=== PATIENT | male | born 1985 | race Caucasian/White ===

== ENCOUNTER 2021-01-11 19:37 | Emergency (ER) | payer SELFPAY ==
[~2021-01-11] VITALS: Ht 190.5 cm; Wt 124.7 kg
[~2021-01-11 19:37] MED LIST: HYDR1TAB8 OP
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
--- NOTE | 2021-01-11 21:05 | Diagnostic Imaging Report ---
EXAM: Left ankle at 8:26 PM INDICATION: Injury, ankle pain. Three views were obtained. COMPARISON: There are no prior studies available for comparison. FINDINGS: There is no fracture, dislocation or acute bony abnormality involving the ankle joint. The ankle mortise is not widened and the talar dome is smooth. On the AP view, there is a small 4 mm calcific density in the soft tissues along the lateral aspect of the cuboid bone. This could represent a small avulsion fracture although the age of this injury is indeterminate. The lateral view also shows a small 4 mm calcific density along the anterior margin of the navicular bone. This too may represent an avulsion fracture although its age is indeterminate as well. The soft tissues are unremarkable. IMPRESSION: 1. There is no acute bony abnormality of the ankle joint. 2. The suspected avulsion fractures adjacent to the cuboid and navicular bones are of indeterminate age. Clinical follow-up is recommended. Dictated by: Dictated on workstation # [id number]
[2021-01-11 21:15] LABS: BUN/CREATININE RATIO 11; CALCIUM 8.9 MG/DL (8.5-10.1); CARBON DIOXIDE 23 MMOL/L (21-32); CHLORIDE 105 MMOL/L (98-107); CREATININE SERUM 0.84 MG/DL (0.60-1.30); GFR ESTIMATED > 60; GLUCOSE 86 MG/DL (70-105); POTASSIUM 3.4 MMOL/L (3.6-5.0); SODIUM 138 MMOL/L (135-145)
[2021-01-11] MEDS ORDERED: AMLO10TA4 PO (21:41)
[2021-01-11] MEDS ORDERED: amLODIPine 10 MG (NORVASC) TAB PO ONE (21:45)
[2021-01-11] MEDS ORDERED: IBUPROFEN 800 MG (MOTRIN) TAB PO ONE (22:00)
[2021-01-11 22:05] VITALS: BP 193/129
== END 2021-01-11 22:05 | disposition home or self-care (01) ==
LOC: EDUNIT# 19:37 → ER 19:43
DX: S93.402A Sprain of unspecified ligament of left ankle, initial encounter (principal); R03.0 Elevated blood-pressure reading, without diagnosis of hypertension; Y04.0XXA Assault by unarmed brawl or fight, initial encounter; W18.39XA Other fall on same level, initial encounter
CPT/HCPCS: 36415; 73610; 80048

== ENCOUNTER 2022-05-11 18:42 | Inpatient (IN) | payer SELFPAY ==
[~2022-05-11] VITALS: Ht 190.5 cm; Wt 120.3 kg
[~2022-05-11 18:42] MED LIST changes: +AMLO10TA4 PO
[2022-05-11] MEDS ORDERED: ASPIRIN 81 MG CHEW (CHILDREN'S ASA) PO ONE (19:15)
--- NOTE | 2022-05-11 19:15 | Diagnostic Imaging Report ---
Indication: Chest pain Frontal chest obtained at 7:15 p.m. Heart and mediastinal silhouette are unremarkable for a portable view. Lungs are clear. There is no pneumothorax or pleural fluid. Impression: Negative chest. Dictated by: Dictated on workstation # [id number]
[2022-05-11 19:16] LABS: ALBUMIN 4.6 GM/DL (3.2-4.5)
[2022-05-11 19:17] LABS: CHLORIDE 104 MMOL/L (98-107); POTASSIUM 3.5 MMOL/L (3.6-5.0); SODIUM 144 MMOL/L (135-145)
[2022-05-11 19:18] LABS: BASOPHILS # (AUTO) 0.1 10^3/uL (0.0-0.1); BASOPHILS % (AUTO) 1 % (0-10); CALCIUM 9.2 MG/DL (8.5-10.1); EOSINOPHILS # (AUTO) 0.2 10^3/uL (0.0-0.3); EOSINOPHILS % (AUTO) 2 % (0-10); HEMATOCRIT 45 % (40-54); HEMOGLOBIN 15.2 g/dL (13.3-17.7); LYMPHOCYTES # (AUTO) 3.7 10^3/uL (1.0-4.0); LYMPHOCYTES % (AUTO) 33 % (12-44); MEAN CORPUSCULAR HEMOGLOBIN 29 pg (25-34); MEAN CORPUSCULAR HGB CONC 34 g/dL (32-36); MEAN CORPUSCULAR VOLUME 85 fL (80-99); MEAN PLATELET VOLUME 10.3 fL (9.0-12.2); MONOCYTES # (AUTO) 0.7 10^3/uL (0.0-1.0); MONOCYTES % (AUTO) 7 % (0-12); NEUTROPHILS # (AUTO) 6.4 10^3/uL (1.8-7.8); NEUTROPHILS % (AUTO) 58 % (42-75); PLATELET COUNT 353 10^3/uL (130-400); WHITE BLOOD COUNT 11.1 10^3/uL (4.3-11.0)
[2022-05-11 19:19] LABS: GLUCOSE 112 MG/DL (70-105); TOTAL PROTEIN 7.7 GM/DL (6.4-8.2)
[2022-05-11] MEDS: NITROGLYCERIN 0.4 MG SL TABS BTL 25'S SL PRN ×3 (19:19→19:50)
[2022-05-11 19:20] LABS: CARBON DIOXIDE 24 MMOL/L (21-32)
[2022-05-11 19:21] LABS: BILIRUBIN,TOTAL 0.4 MG/DL (0.1-1.0)
[2022-05-11 19:22] LABS: ALKALINE PHOSPHATASE 80 U/L (40-136)
[2022-05-11 19:23] LABS: CREATININE SERUM 0.91 MG/DL (0.60-1.30); GFR ESTIMATED 113
--- NOTE | 2022-05-11 19:23 | ED Chest Pain ---
General Chief Complaint: Cardiac/General Problems Stated Complaint: ABNORMAL EKG, HTN Nursing Triage Note: PT AMB TO RM 5 WITH MOTHER WITH C/O SOB STARTING SUNDAY AND HTN. PT SEEN AT [facility] BEFORE ARRIVAL AND WAS GIVEN 324 ASA AT CLINIC Source: patient, old records Exam Limitations: no limitations History of Present Illness Date Seen by Provider: May 11, 2022 Time Seen by Provider: 18:53 Initial Comments This 36-year-old gentleman with known history of uncontrolled and untreated hypertension presents to the emergency room with 4 days of shortness of breath and "left rib pain" presents to the ER as directed by the [facility] walk-in clinic. He went to the clinic for the above-mentioned symptoms. EKG noted some nonspecific ST changes and severe hypertension with systolic blood pressure greater than 200. He was referred to the emergency room. Initial blood pressure here is 247/146. He was noted to have significant hypertension when seen here last year for an ankle fracture. He was prescribed Norvasc. He reports blood pressure did improve while on Norvasc with systolics in the 160s. He did not follow-up promptly with her primary care provider and did not continue on blood pressure medications. He reports a typical blood pressure at home recently has been 180s over 130s. He denies any use of stimulants other than drinking Mountain Dew. He denies any illicit drug use or alcohol use. He is awaiting an appointment to establish care in June. He has a smoker and has a chronic unchanged cough. He denies fever. He has had no unusual swelling recently. Allergies and Home Medications Allergies Coded Allergies: No Known Drug Allergies (Unverified , 06/19/10) Patient Home Medication List Home Medication List Reviewed: Yes Amlodipine Besylate (Norvasc) 10 Mg Tablet, 10 MG PO DAILY Prescribed by: UCHE BOOKER on 01/11/212140 Hydrocodone Bit/Ibuprofen (Vicoprofen 200-7.5 Mg Tab) 1 Each Tablet, 1-2 EACH OP Q 4 - 6 HRS PRN Prescribed by: ASHA STORY on 06/19/10 2173 Review of Systems Review of Systems Constitutional: no symptoms reported EENTM: No Symptoms Reported Respiratory: See HPI Cardiovascular: See HPI Gastrointestinal: No Symptoms Reported Genitourinary: No Symptoms Reported Musculoskeletal: no symptoms reported Skin: no symptoms reported Psychiatric/Neurological: No Symptoms Reported Endocrine: No Symptoms Reported Hematologic/Lymphatic: No Symptoms Reported Past Ihrpfwt-Zlstdd-Yykjex Hx Patient Social History Tobacco Use?: Yes Tobacco type used: Cigarettes Smoking Status: Current Everyday Smoker Substance use?: No Alcohol Use?: No Pt feels they are or have been: No Immunizations Up To Date Influenza Vaccine Up-to-Date: No; Not Current Seasonal Allergies Seasonal Allergies: Yes Past Medical History Surgery/Hospitalization HX: HTN, ANXIETY, BIPOLAR Surgeries: Yes Adenoidectomy, Tonsillectomy Respiratory: No Cardiac: Yes Hypertension Neurological: No Genitourinary: No Gastrointestinal: No Musculoskeletal: No Endocrine: No HEENT: No Hearing Impairment: Denies Cancer: No Psychosocial: No Integumentary: No Blood Disorders: No Adverse Reaction/Blood Tranf: No Physical Exam Vital Signs Vital Signs - First Documented 05/11/22 18:53 Temp 37.0 Pulse 95 Resp 20 B/P (MAP) 247/146 (179) Capillary Refill : Height, Weight, BMI Height: '" Weight: lbs. oz. kg; 34.00 BMI Method: General Appearance: No Apparent Distress, WD/WN, Obese HEENT: PERRL/EOMI, Normal ENT Inspection Neck: Normal Inspection; No JVD Respiratory: Chest Non Tender, Lungs Clear, Normal Breath Sounds, No Accessory Muscle Use, No Respiratory Distress Cardiovascular: Regular Rate, Rhythm, No Edema, No Murmur Gastrointestinal: Normal Bowel Sounds, Non Tender, Soft; No Distended Extremity: Normal Inspection, Non Tender, No Calf Tenderness, No Pedal Edema Neurologic/Psychiatric: Alert, Oriented x3, No Motor/Sensory Deficits, Normal Mood/Affect Skin: Normal Color, Warm/Dry Progress/Results/Core Measures Results/Orders Lab Results Laboratory Tests Test 05/11/22 18:56 Range/Units White Blood Count 11.1 H 4.3-11.0 10^3/uL Red Blood Count 5.29 4.30-5.52 10^6/uL Hemoglobin 15.2 13.3-17.7 g/dL Hematocrit 45 40-54 % Mean Corpuscular Volume 85 80-99 fL Mean Corpuscular Hemoglobin 29 25-34 pg Mean Corpuscular Hemoglobin Concent 34 32-36 g/dL Red Cell Distribution Width 14.0 10.0-14.5 % Platelet Count 353 130-400 10^3/uL Mean Platelet Volume 10.3 9.0-12.2 fL Immature Granulocyte % (Auto) 0 % Neutrophils (%) (Auto) 58 42-75 % Lymphocytes (%) (Auto) 33 12-44 % Monocytes (%) (Auto) 7 0-12 % Eosinophils (%) (Auto) 2 0-10 % Basophils (%) (Auto) 1 0-10 % Neutrophils # (Auto) 6.4 1.8-7.8 10^3/uL Lymphocytes # (Auto) 3.7 1.0-4.0 10^3/uL Monocytes # (Auto) 0.7 0.0-1.0 10^3/uL Eosinophils # (Auto) 0.2 0.0-0.3 10^3/uL Basophils # (Auto) 0.1 0.0-0.1 10^3/uL Immature Granulocyte # (Auto) 0.0 0.0-0.1 10^3/uL Prothrombin Time 11.9 L 12.2-14.7 SEC INR Comment 0.8 0.8-1.4 Activated Partial Thromboplast Time 30 24-35 SEC Sodium Level 144 135-145 MMOL/L Potassium Level 3.5 L 3.6-5.0 MMOL/L Chloride Level 104 98-107 MMOL/L Carbon Dioxide Level 24 21-32 MMOL/L Anion Gap 16 H 5-14 MMOL/L Blood Urea Nitrogen 12 7-18 MG/DL Creatinine 0.91 0.60-1.30 MG/DL Estimat Glomerular Filtration Rate 113 BUN/Creatinine Ratio 13 Glucose Level 112 H 70-105 MG/DL Calcium Level 9.2 8.5-10.1 MG/DL Corrected Calcium 8.5-10.1 MG/DL Magnesium Level 2.1 1.6-2.4 MG/DL Total Bilirubin 0.4 0.1-1.0 MG/DL Aspartate Amino Transf (AST/SGOT) 27 5-34 U/L Alanine Aminotransferase (ALT/SGPT) 45 0-55 U/L Alkaline Phosphatase 80 40-136 U/L Myoglobin 77.9 10.0-92.0 NG/ML Troponin I < 0.028 <0.028 NG/ML B-Type Natriuretic Peptide 37.6 <100.0 PG/ML Total Protein 7.7 6.4-8.2 GM/DL Albumin 4.6 H 3.2-4.5 GM/DL TSH [place] Testing 1.99 0.35-4.94 UIU/ML My Orders Orders - BETHANIE CARVALHO MD Cbc With Automated Diff (05/11/22 18:53) Magnesium (05/11/22 18:53) Chest 1 View, Ap/Pa Only (05/11/22 18:53) Ekg Tracing (05/11/22 18:53) Comprehensive Metabolic Panel (05/11/22 18:53) Myoglobin Serum (05/11/22 18:53) Protime With Inr (05/11/22 18:53) Partial Thromboplastin Time (05/11/22 18:53) O2 (05/11/22 18:53) Monitor-Rhythm Ecg Trace Only (05/11/22 18:53) Lipid Panel (05/12/22 06:00) Ed Iv/Invasive Line Start (05/11/22 18:53) Troponin I Chanel (05/11/22 18:53) Ekg Tracing (05/11/22 18:53) Nitroglycerin 0.4 Mg Btl 25's (Nitrostat (05/11/22 19:15) Thyroid Analyzer (05/11/22 19:10) Bnp Chanel (05/11/22 19:10) Ns (Ivpb) (Sodium C... W/Nicardipine Iv (05/11/22 21:00) Metoprolol Succinate (Xl) Tab (Toprol Xl (05/11/22 20:52) Ed Admission (Communication) (05/11/22 20:52) Medications Given in ED Current Medications Medications Dose Ordered Sig/Dunia Route Start Time Stop Time Status Last Admin Dose Admin Nitroglycerin 0.4 mg UD PRN SL 05/11/22 19:15 05/11/22 19:50 DC 05/11/22 19:50 0.4 MG Vital Signs/I&O 05/11/22 18:53 Temp 37.0 Pulse 95 Resp 20 B/P (MAP) 247/146 (179) Blood Pressure Mean: 179 Progress Progress Note #1: Time: 20:44 Progress Note Aspirin was given in the clinic. Patient's chest pain has resolved after nitroglycerin x3. It took 3 nitroglycerin to alleviate his pain. Blood pressure did improve some to systolic in the 190s. It is now rebounding back up with his last blood pressure at 205/125. Progress Note #2: Time: 21:02 Progress Note Case was reviewed with Dr. Anand and Dr. Angulo. They are agreeable to a Cardene drip which is being started now. Dr. Angulo also requested a dose of Toprol-XL 200 mg now and daily. Report was given to eICU. Dr. Anand is placing admission orders. Patient is agreeable to admission and requests full CODE STATUS. Initial ECG Impression Date: May 11, 2022 Initial ECG Impression Time: 19:00 Initial ECG Rate: 87 Initial ECG Rhythm: Normal Sinus Initial ECG Intervals: Normal Comment Normal sinus rhythm with nondiagnostic ST changes. No abnormal intervals. LVH noted. Diagnostic Imaging Diagonstic Imaging: Xray Plain Films/CT/US/NM/MRI: chest Comments NAME: MARIYA BELTRAN [facility] REC#: [id number] PT STATUS: REG ER : 1985 PHYSICIAN: BETHANIE CARVALHO MD ADMIT DATE: 05/11/22/ER Draft Date of Exam:05/11/22 CHEST 1 VIEW, AP/PA ONLY Indication: Chest pain Frontal chest obtained at 7:15 p.m. Heart and mediastinal silhouette are unremarkable for a portable view. Lungs are clear. There is no pneumothorax or pleural fluid. Impression: Negative chest. Dictated on workstation # [id number] Dict: 05/11/221912 Trans: 05/11/221914 [facility] [id number] Interpreted by: STEPHAN WYMAN MD Departure Communication (Admissions) Time/Spoke to Admitting Phy: 20:50 Dr. Anand Time/Spoke to Consulting Phy: 20:55 Dr. Angulo Impression Primary Impression: Malignant hypertension Additional Impression: Chest pain Qualified Codes: R07.9 - Chest pain, unspecified Disposition: ADMITTED INPATIENT Condition: Stable Admissions Decision to Admit Reason: Admit from ER (General) Decision to Admit/Date: May 11, 2022 Time/Decision to Admit Time: 20:50 Departure-Patient Inst. Referrals: [facility] (PCP/Family) Primary Care Physician BETHANIE CARVALHO MD May 11, 2022 19:23
[2022-05-11 19:24] LABS: BUN/CREATININE RATIO 13
[2022-05-11 19:25] LABS: ALANINE AMINOTRANSFERASE 45 U/L (0-55); MAGNESIUM 2.1 MG/DL (1.6-2.4)
[2022-05-11] MEDS ORDERED: meTOprolol SUCCINATE 100 MG (TOPROL XL) TAB PO STA (20:52)
[2022-05-11 20:56] LABS: INR 0.8 (0.8-1.4); PROTHROMBIN TIME PATIENT 11.9 SEC (12.2-14.7)
[2022-05-11] MEDS: niCARdipine IV (Pyxis drip kit 50 MG in NS (IVPB) 230 ML IV SCH ×3 (21:16→22:51)
[2022-05-11] MEDS ORDERED: NS IV 1000 ML 1,000 ML ONE (22:11)
[2022-05-11 22:15] VITALS: BP_SYST 164; BP_SYST 193; BP_DIAS 106; BP_DIAS 115
[2022-05-11] MEDS ORDERED: ANTACID SUSP 30 ML UDC (MYLANTA) PO PRN (22:15)
[2022-05-11] MEDS ORDERED: NS IV 1000 ML 1,000 ML IV SCH (22:15)
[2022-05-11] MEDS ORDERED: ACETAMINOPHEN 325 MG TABLET PO PRN (22:15)
[2022-05-11] MEDS ORDERED: polyethylene glycoL POWDER 17 GM (MIRALAX) PACK PO PRN (22:15)
[2022-05-11] MEDS ORDERED: ONDANSETRON 4 MG/2 ML (SDV) Z0FRAN IV PRN (22:15)
[2022-05-11] MEDS ORDERED: NS IV 500 ML 500 ML IV PRN (22:15)
[2022-05-11] MEDS ORDERED: morphine IMMEDIATE RELEASE 15 MG TABLET PO PRN (22:15)
[2022-05-11] MEDS ORDERED: diphenhydrAMINE 50 MG/ML INJ (BENADRYL) IVP PRN (22:15)
[2022-05-11] MEDS ORDERED: CALCIUM CARBONATE 500 MG (TUMS) TAB.CHEW PO PRN (22:15)
[2022-05-11] MEDS ORDERED: ONDANSETRON 4 MG (ZOFRAN) ORAL DISSOLVE TAB PO PRN (22:15)
[2022-05-11] MEDS ORDERED: LACTULOSE SYRUP 10GM/15ML (ENULOSE) 30ML UDC PO PRN (22:15)
[2022-05-11] MEDS ORDERED: diphenhydrAMINE 25 MG TAB (BENADRYL) PO PRN (22:15)
[2022-05-11] MEDS ORDERED: BISACODYL 10 MG SUPP (DULCOLAX) PR PRN (22:15)
[2022-05-11] MEDS ORDERED: MELATONIN 3 MG TABLET PO PRN (22:15)
[2022-05-11] MEDS ORDERED: morphine INJ 4 MG/ML 1 ML (VIAL/SYRINGE) IV PRN (22:15)
[2022-05-11] MEDS ORDERED: MILK OF MAGNESIA 400 MG/5 ML 30 ML UDC PO PRN (22:15)
[2022-05-11] MEDS ORDERED: LORazepam 0.5 MG (ATIVAN) TABLET PO PRN (22:15)
[2022-05-11] MEDS ORDERED: RT-ALBUTEROL/IPRATROPIUM 3 ML (DUONEB) VIAL INH PRN (22:30)
[2022-05-11] MEDS: ENOXAPARIN 40 MG/0.4 ML (LOVENOX) SYR SC SCH (23:14)
[2022-05-12 05:06] LABS: BASOPHILS # (AUTO) 0.1 10^3/uL (0.0-0.1); BASOPHILS % (AUTO) 1 % (0-10); EOSINOPHILS # (AUTO) 0.2 10^3/uL (0.0-0.3); EOSINOPHILS % (AUTO) 2 % (0-10); HEMATOCRIT 46 % (40-54); HEMOGLOBIN 15.5 g/dL (13.3-17.7); LYMPHOCYTES # (AUTO) 3.5 10^3/uL (1.0-4.0); LYMPHOCYTES % (AUTO) 29 % (12-44); MEAN CORPUSCULAR HEMOGLOBIN 29 pg (25-34); MEAN CORPUSCULAR HGB CONC 34 g/dL (32-36); MEAN CORPUSCULAR VOLUME 85 fL (80-99); MEAN PLATELET VOLUME 10.2 fL (9.0-12.2); MONOCYTES # (AUTO) 0.9 10^3/uL (0.0-1.0); MONOCYTES % (AUTO) 8 % (0-12); NEUTROPHILS # (AUTO) 7.1 10^3/uL (1.8-7.8); NEUTROPHILS % (AUTO) 60 % (42-75); PLATELET COUNT 318 10^3/uL (130-400); WHITE BLOOD COUNT 11.9 10^3/uL (4.3-11.0)
[2022-05-12 05:40] LABS: ALBUMIN 4.4 GM/DL (3.2-4.5); BILIRUBIN,TOTAL 0.5 MG/DL (0.1-1.0); CALCIUM 9.2 MG/DL (8.5-10.1); CREATININE SERUM 0.79 MG/DL (0.60-1.30); MAGNESIUM 2.2 MG/DL (1.6-2.4); PHOSPHORUS 3.4 MG/DL (2.3-4.7); POTASSIUM 3.6 MMOL/L (3.6-5.0); TOTAL PROTEIN 7.6 GM/DL (6.4-8.2)
[2022-05-12 05:41] LABS: CHOLESTEROL 206 MG/DL (< 200); HDL CHOLESTEROL 42 MG/DL (40-60); TRIGLYCERIDES 92 MG/DL (<150); VLDL CHOLESTEROL 18 MG/DL (5-40)
[2022-05-12] MEDS: MAGNESIUM 1 GM/100 ML IVPB 100 ML IV SCH (06:08)
[2022-05-12] MEDS: POTASSIUM CL 10MEQ/50ML IVPB 50 ML IV SCH (06:09)
[2022-05-12] MEDS ORDERED: KCL 20 MEQ TAB (K-DUR) PO ONE (06:15)
[2022-05-12] MEDS: KCL 20 MEQ TAB (K-DUR) PO SCH (06:18)
--- NOTE | 2022-05-12 08:25 | Consultation-Cardiology ---
HPI-Cardiology Cardiology Consultation: Date of Consultation 05/12/22 Time Seen by a Provider: 09:30 Date of Admission 05-11-22 Attending Physician [place] Admitting Physician Admitting Physician: Louise Anand DO Attending Physician: Louise Anand DO Consulting Physician Orlando Angulo MD HPI: Chief Complaint: Uncontrolled HTN Mr. Cerrato is a 36 yr old male who came in to the ED yesterday after being seen at [facility]. He was noted to be hypertensive at that time. He has been admitted to ICU 10. He was started on a Cardene gtt. BP had improved to the point that the gtt was turned off. However, one he woke up this morning his BP went up again. He states he has had high blood pressure for over a year, but he does not like to take medications, so he stopped it. He reports he had occ "pinching' left lateral wall pains. The discomfort only last seconds. No assoc symptoms. No radiation. Discomfort is not r/t activity or emotional stress. No c/o n/v/d. No c/o fever or chills. Review of Systems-Cardiology Review of Systems Constitutional: No chills, No fever, No lightheadedness, No malaise Eyes: No vision change Ears/Nose/Throat: No epistaxis, No recent hearing loss Respiratory: As described under HPI Cardiovascular: As described under HPI Gastrointestinal: As described under HPI Genitourinary: No dysuria, No hematuria Musculoskeletal: no symptoms reported Skin: No rash on exposed areas, No ulcerations on exposed areas Psychiatric/Neurological: anxiety, depression; No focal weakness Hematologic: No bleeding abnormalities GHL-Zjqhtd-Easwhm Hx Patient Social History Smoking Status: Current Everyday Smoker 2nd Hand Smoke Exposure: No Have you traveled recently?: No Alcohol Use?: No Pt feels they are or have been: No Tobacco type used: Cigarettes Past Medical History PMH As described under Assessment. Family Medical History Family Medical History: He reports his mother had HTN and a heart arrhythmia. He reports he has a sister with a "heart valve" problem. Allergies and Home Medications Allergies Coded Allergies: No Known Drug Allergies (Unverified , 06/19/10) Patient Home Medication List Calcium Carbonate (Tums) 300 Mg Calcium (750 Mg) Tab.chew, 300-600 MG PO Q6H PRN for INDIGESTION, (Reported) Entered as Reported by: BAILEE DOHERTY on 05/12/22 1100 Last Action: Reviewed Ibuprofen (Ibuprofen) 200 Mg Tablet, 800 MG PO Q8H PRN for PAIN-MILD (1-4), (Reported) Entered as Reported by: BAILEE DOHERTY on 05/12/22 1100 Last Action: Reviewed Discontinued Medications Amlodipine Besylate (Norvasc) 10 Mg Tablet, 10 MG PO DAILY Discontinued Reason: No Longer Taking Prescribed by: UCHE BOOKER on 01/11/212140 Last Action: Discontinued Hydrocodone Bit/Ibuprofen (Vicoprofen 200-7.5 Mg Tab) 1 Each Tablet, 1-2 EACH OP Q 4 - 6 HRS PRN Discontinued Reason: No Longer Taking Prescribed by: ASHA STORY on 06/19/10 5428 Last Action: Discontinued Physical Exam-Cardiology Physical Exam Vital Signs/I&O 05/12/22 05/12/22 05/12/22 05/12/22 03:00 04:00 04:00 05:00 Pulse 62 67 71 Resp 15 20 17 B/P (MAP) 146/90 (108) 128/75 (92) 142/85 (104) Pulse Ox 92 93 96 94 O2 Delivery Room Air Room Air Room Air Room Air 05/12/22 05/12/22 05/12/22 05/12/22 06:00 07:00 07:00 08:00 Pulse 57 61 62 Resp 13 13 B/P (MAP) 140/85 (103) 140/82 (101) Pulse Ox 95 95 96 O2 Delivery Room Air Room Air Room Air 05/12/22 05/12/22 05/12/22 05/12/22 08:00 09:00 10:00 11:00 Pulse 82 67 70 65 Resp 22 10 20 20 B/P (MAP) 166/119 (135) 152/96 (114) 170/112 (131) 171/110 (130) Pulse Ox 97 97 96 96 O2 Delivery Room Air Room Air Room Air Room Air 05/12/22 05/12/22 05/12/22 05/12/22 12:00 13:00 13:00 13:47 Pulse 70 74 69 Resp 23 19 B/P (MAP) 149/88 (108) 173/103 (126) Pulse Ox 92 96 92 O2 Delivery Room Air Room Air Room Air 05/12/22 14:00 Pulse 65 Resp 10 B/P (MAP) 156/97 (116) Pulse Ox 96 O2 Delivery Room Air 05/12/22 00:00 Intake Total 0 ml Output Total 0 ml Balance 0 ml Capillary Refill : Constitutional: AAO x 3, well-developed, well-nourished HEENT: PERRL, hearing is well preserved, oral hygience is good Neck: No carotid bruit; carotid pulses are 2 + bilaterally Respiratory: No accessory muscle use, No respiratory distress; chest expansion is symmetric, chest is bilaterally symmetric, lungs clear to auscultation Cardiovascular: regular rate-rhythm; No JVD; S1 and S2 Gastrointestinal: No tender; soft, round, audible bowel sounds Extremities: no lower extremity edema bilateral Neurologic/Psychiatric: grossly intact (moves all extremities) Skin: No rash on exposed areas, No ulcerations on exposed areas Data Review Labs Laboratory Tests 05/11/22 18:56: White Blood Count 11.1H, Red Blood Count 5.29, Hemoglobin 15.2, Hematocrit 45, Mean Corpuscular Volume 85, Mean Corpuscular Hemoglobin 29, Mean Corpuscular Hemoglobin Concent 34, Red Cell Distribution Width 14.0, Platelet Count 353, Mean Platelet Volume 10.3, Immature Granulocyte % (Auto) 0, Neutrophils (%) (Auto) 58, Lymphocytes (%) (Auto) 33, Monocytes (%) (Auto) 7, Eosinophils (%) (Auto) 2, Basophils (%) (Auto) 1, Neutrophils # (Auto) 6.4, Lymphocytes # (Auto) 3.7, Monocytes # (Auto) 0.7, Eosinophils # (Auto) 0.2, Basophils # (Auto) 0.1, Immature Granulocyte # (Auto) 0.0, Prothrombin Time 11.9L, INR Comment 0.8, Activated Partial Thromboplast Time 30, Sodium Level 144, Potassium Level 3.5L, Chloride Level 104, Carbon Dioxide Level 24, Anion Gap 16H, Blood Urea Nitrogen 12, Creatinine 0.91, Estimat Glomerular Filtration Rate 113, BUN/Creatinine Ratio 13, Glucose Level 112H, Calcium Level 9.2, Corrected Calcium , Magnesium Level 2.1, Total Bilirubin 0.4, Aspartate Amino Transf (AST/SGOT) 27, Alanine Aminotransferase (ALT/SGPT) 45, Alkaline Phosphatase 80, Myoglobin 77.9, Troponin I < 0.028, B-Type Natriuretic Peptide 37.6, Total Protein 7.7, Albumin 4.6H, TSH [place] Testing 1.99 05/12/22 04:56: White Blood Count 11.9H, Red Blood Count 5.39, Hemoglobin 15.5, Hematocrit 46, Mean Corpuscular Volume 85, Mean Corpuscular Hemoglobin 29, Mean Corpuscular Hemoglobin Concent 34, Red Cell Distribution Width 13.9, Platelet Count 318, Mean Platelet Volume 10.2, Immature Granulocyte % (Auto) 0, Neutrophils (%) (Auto) 60, Lymphocytes (%) (Auto) 29, Monocytes (%) (Auto) 8, Eosinophils (%) (Auto) 2, Basophils (%) (Auto) 1, Neutrophils # (Auto) 7.1, Lymphocytes # (Auto) 3.5, Monocytes # (Auto) 0.9, Eosinophils # (Auto) 0.2, Basophils # (Auto) 0.1, Immature Granulocyte # (Auto) 0.0, Sodium Level 142, Potassium Level 3.6, Chloride Level 107, Carbon Dioxide Level 23, Anion Gap 12, Blood Urea Nitrogen 9, Creatinine 0.79, Estimat Glomerular Filtration Rate 119, BUN/Creatinine Ratio 11, Glucose Level 87, Calcium Level 9.2, Corrected Calcium 8.9, Magnesium Level 2.2, Total Bilirubin 0.5, Aspartate Amino Transf (AST/SGOT) 28, Alanine Aminotransferase (ALT/SGPT) 49, Alkaline Phosphatase 72, Total Protein 7.6, Albumin 4.4, Phosphorus Level 3.4, Triglycerides Level 92, Cholesterol Level 206H, LDL Cholesterol Direct 162H, VLDL Cholesterol 18, HDL Cholesterol 42 Radiology NAME: MARIYA CERRATO [facility] REC#: [id number] PT STATUS: ADM IN : 1985 PHYSICIAN: BETHANIE CARVALHO MD ADMIT DATE: 05/11/22/ICU Signed Date of Exam:05/11/22 CHEST 1 VIEW, AP/PA ONLY Indication: Chest pain Frontal chest obtained at 7:15 p.m. Heart and mediastinal silhouette are unremarkable for a portable view. Lungs are clear. There is no pneumothorax or pleural fluid. Impression: Negative chest. Dictated by: Dictated on workstation # [id number] Dict: 05/11/221912 Trans: 05/11/222107 CVB [id number] Interpreted by: STEPHAN WYMAN MD Electronically signed by: STEPHAN WYMAN MD 05/11/222107 ECG Impression ECG Initial ECG Rhythm: Normal Sinus A/P-Cardiology Assessment/Admission Diagnosis Uncontrolled HTN ADHD Bi-polar Non-compliance with medications Discussion and Recomendations Uncontrolled HTN - start BB - adjust antihypertensive regimen as indicated Echocardiogram today Monitor lab closely - replace electrolytes as indicated Further recs will be based on his hospital course We would like to thank medical services for this consult Clinical Quality Measures AMI/AHF: ASA po Prior to arrival: Yes (324) SHERYL NEFF May 12, 2022 08:25
[2022-05-12] MEDS: niCARdipine IV (Pyxis drip kit 50 MG in NS (IVPB) 230 ML IV SCH ×4 (08:29→18:29)
[2022-05-12] MEDS: SENNOSIDES 8.6 MG (SENOKOT) TAB PO SCH ×2 (08:30→21:08)
[2022-05-12] MEDS: DOCUSATE SODIUM 100 MG (COLACE) CAP PO SCH ×2 (08:30→21:08)
[2022-05-12] MEDS: meTOprolol SUCCINATE 100 MG (TOPROL XL) TAB PO SCH (09:03)
--- NOTE | 2022-05-12 09:16 | Tele-ICU Progress Note ---
Subjective Date Seen by a Provider: May 12, 2022 Subjective/Events-last exam This virtual visit was conducted using real time audio/video. Thank you for asking us to see this patient for malignant htn. Recent events: PE: Appears comfortable on camera. VSS. 167/111 O2 sat 95% on RA HEENT: No obvious masses, adenopathy or JVD. Chest: clear to auscultation. CV: RRR S1 S2 No murmur or added sounds. Abd: Non-tender. Bowel sounds Y. : Unremarkable. 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 No obvious focal findings. Extremities: No edema. Capillary refill < 3 seconds. Skin: unremarkable. Results: Elevated WCC 11.9. CXR: Clear. Available chart/ vitals / labs / images reviewed. Video assessment done using teleICU camera, rest of exam as per RN. A/P: Critical Care: critically ill patient. Cont. Cardene, Yair., PRN Duonebs. Could start PO antihypertensive meds. Discussed with RN Lucero. Asked RN to reach out to eICU if any questions or concerns later. Time spent with patient/coordination of care with other health professionals (mins): 15 Sepsis Event Evaluation Height, Weight, BMI Height: '" Weight: lbs. oz. kg; 33.86 BMI Method: Exam Exam Patient acknowledged, consented, and participated in this virtual visit which was conducted using real time audio/video Vital Signs Date Time Temp Pulse Resp B/P (MAP) Pulse Ox O2 Delivery O2 Flow Rate FiO2 05/12/22 08:00 82 22 166/119 (135) 97 Room Air 05/12/22 08:00 96 Room Air 05/12/22 07:00 62 05/12/22 07:00 61 13 140/82 (101) 95 Room Air 05/12/22 06:00 57 13 140/85 (103) 95 Room Air 05/12/22 05:00 71 17 142/85 (104) 94 Room Air 05/12/22 04:00 96 Room Air 05/12/22 04:00 67 20 128/75 (92) 93 Room Air 05/12/22 03:00 62 15 146/90 (108) 92 Room Air 05/12/22 02:00 72 19 145/87 (106) 93 Room Air 05/12/22 01:00 70 05/12/22 01:00 68 16 150/89 (109) 92 Room Air 05/12/22 00:00 71 15 134/79 (97) 95 Room Air 05/12/22 00:00 95 Room Air 05/11/22 23:00 78 14 157/102 (120) 94 Room Air 05/11/22 22:45 76 14 164/106 (125) 94 Room Air 05/11/22 22:30 82 15 176/106 (129) 96 Room Air 05/11/22 22:15 80 95 21 05/11/22 22:15 81 15 168/105 (126) 96 Room Air 05/11/22 22:00 84 18 175/111 (132) 96 Room Air 05/11/22 21:47 81 05/11/22 21:45 98 Room Air 05/11/22 21:45 37.2 175/115 (135) 05/11/22 21:35 80 16 193/115 95 Room Air 05/11/22 21:16 80 180/115 05/11/22 18:53 37.0 95 20 247/146 (179) I & O 05/12/22 07:00 Intake Total 500 ml Output Total 0 ml Balance 500 ml Height & Weight Height: '" Weight: lbs. oz. kg; 33.86 BMI Method: General Appearance: No Apparent Distress, WD/WN, Obese HEENT: PERRL/EOMI, Normal ENT Inspection Neck: Normal Inspection; No JVD Respiratory: Chest Non Tender, Lungs Clear, Normal Breath Sounds, No Accessory Muscle Use, No Respiratory Distress Cardiovascular: Regular Rate, Rhythm, No Edema, No Murmur Extremity: Normal Inspection, Non Tender, No Calf Tenderness, No Pedal Edema Neurologic/Psychiatric: Alert, Oriented x3, No Motor/Sensory Deficits, Normal Mood/Affect Skin: Normal Color, Warm/Dry Results Lab Laboratory Tests 05/11/22 18:56 05/12/22 04:56 Assessment/Plan Assessment/Plan See free text. Critical Care: Critically Ill Patient HEBER BOLTON MD May 12, 2022 09:16
[2022-05-12] MEDS ORDERED: IBUP-2473 PO (11:00)
[2022-05-12] MEDS ORDERED: CALC300T4 PO (11:00)
[2022-05-12] MEDS ORDERED: amLODIPine 10 MG (NORVASC) TAB PO NR (11:30)
--- NOTE | 2022-05-12 12:02 | Consultation-Cardiology ---
HPI-Cardiology Cardiology Consultation: Date of Consultation 05/12/22 Time Seen by a Provider: 10:00 Date of Admission Attending Physician [place] Admitting Physician Admitting Physician: Lousie Anand DO Attending Physician: Louise Anand DO Consulting Physician MARA MO MD, MA, FACP, FACC, FSCAI, CCDS HPI: Chief Complaint: Uncontrolled HTN Mr. Cerrato is a 36 yr old male who came in to the ED yesterday after being seen at [facility]. He was noted to be hypertensive at that time. He has been admitted to ICU 10. He was started on a Cardene gtt. BP had improved to the point that the gtt was turned off. However, one he woke up this morning his BP went up again. He states he has had high blood pressure for over a year, but he does not like to take medications, so he stopped it. He reports he had occ "pinching' left lateral wall pains. The discomfort only last seconds. No assoc symptoms. No radiation. Discomfort is not r/t activity or emotional stress. No c/o n/v/d. No c/o fever or chills. Review of Systems-Cardiology Review of Systems Constitutional: No chills, No fever, No lightheadedness, No malaise Eyes: No vision change Ears/Nose/Throat: No epistaxis, No recent hearing loss Respiratory: As described under HPI Cardiovascular: As described under HPI Gastrointestinal: As described under HPI Genitourinary: No dysuria, No hematuria Musculoskeletal: no symptoms reported Skin: No rash on exposed areas, No ulcerations on exposed areas Psychiatric/Neurological: anxiety, depression; No focal weakness Hematologic: No bleeding abnormalities TKP-Utejvp-Jilpau Hx Patient Social History Smoking Status: Current Everyday Smoker 2nd Hand Smoke Exposure: No Have you traveled recently?: No Alcohol Use?: No Pt feels they are or have been: No Tobacco type used: Cigarettes Past Medical History PMH As described under Assessment. Family Medical History Family Medical History: He reports his mother had HTN and a heart arrhythmia. He reports he has a sister with a "heart valve" problem. Allergies and Home Medications Allergies Coded Allergies: No Known Drug Allergies (Unverified , 06/19/10) Patient Home Medication List Home Medication List Reviewed: Yes Calcium Carbonate (Tums) 300 Mg Calcium (750 Mg) Tab.chew, 300-600 MG PO Q6H PRN for INDIGESTION, (Reported) Entered as Reported by: BAILEE DOHERTY on 05/12/22 1100 Last Action: Reviewed Ibuprofen (Ibuprofen) 200 Mg Tablet, 800 MG PO Q8H PRN for PAIN-MILD (1-4), (Reported) Entered as Reported by: BAILEE DOHERTY on 05/12/22 1100 Last Action: Reviewed Discontinued Medications Amlodipine Besylate (Norvasc) 10 Mg Tablet, 10 MG PO DAILY Discontinued Reason: No Longer Taking Prescribed by: UCHE BOOKER on 01/11/212140 Last Action: Discontinued Hydrocodone Bit/Ibuprofen (Vicoprofen 200-7.5 Mg Tab) 1 Each Tablet, 1-2 EACH OP Q 4 - 6 HRS PRN Discontinued Reason: No Longer Taking Prescribed by: ASHA STORY on 06/19/10 4207 Last Action: Discontinued Physical Exam-Cardiology Physical Exam Vital Signs/I&O 05/12/22 05/12/22 05/12/22 05/12/22 01:00 01:00 02:00 03:00 Pulse 68 70 72 62 Resp 16 19 15 B/P (MAP) 150/89 (109) 145/87 (106) 146/90 (108) Pulse Ox 92 93 92 O2 Delivery Room Air Room Air Room Air 05/12/22 05/12/22 05/12/22 05/12/22 04:00 04:00 05:00 06:00 Pulse 67 71 57 Resp 20 17 13 B/P (MAP) 128/75 (92) 142/85 (104) 140/85 (103) Pulse Ox 93 96 94 95 O2 Delivery Room Air Room Air Room Air Room Air 05/12/22 05/12/22 05/12/22 05/12/22 07:00 07:00 08:00 08:00 Pulse 61 62 82 Resp 13 22 B/P (MAP) 140/82 (101) 166/119 (135) Pulse Ox 95 96 97 O2 Delivery Room Air Room Air Room Air 05/12/22 05/12/22 09:00 10:00 Pulse 67 70 Resp 10 20 B/P (MAP) 152/96 (114) 170/112 (131) Pulse Ox 97 96 O2 Delivery Room Air Room Air 05/12/22 00:00 Intake Total 0 ml Output Total 0 ml Balance 0 ml Capillary Refill : Constitutional: AAO x 3, well-developed, well-nourished HEENT: PERRL, hearing is well preserved, oral hygience is good Neck: No carotid bruit; carotid pulses are 2 + bilaterally Respiratory: No accessory muscle use, No respiratory distress; chest expansion is symmetric, chest is bilaterally symmetric, lungs clear to auscultation Cardiovascular: regular rate-rhythm; No JVD; S1 and S2 Gastrointestinal: No tender; soft, round, audible bowel sounds Extremities: no lower extremity edema bilateral Neurologic/Psychiatric: grossly intact (moves all extremities) Skin: No rash on exposed areas, No ulcerations on exposed areas Data Review Labs Laboratory Tests 05/11/22 18:56: White Blood Count 11.1H, Red Blood Count 5.29, Hemoglobin 15.2, Hematocrit 45, Mean Corpuscular Volume 85, Mean Corpuscular Hemoglobin 29, Mean Corpuscular Hemoglobin Concent 34, Red Cell Distribution Width 14.0, Platelet Count 353, Mean Platelet Volume 10.3, Immature Granulocyte % (Auto) 0, Neutrophils (%) (Auto) 58, Lymphocytes (%) (Auto) 33, Monocytes (%) (Auto) 7, Eosinophils (%) (Auto) 2, Basophils (%) (Auto) 1, Neutrophils # (Auto) 6.4, Lymphocytes # (Auto) 3.7, Monocytes # (Auto) 0.7, Eosinophils # (Auto) 0.2, Basophils # (Auto) 0.1, Immature Granulocyte # (Auto) 0.0, Prothrombin Time 11.9L, INR Comment 0.8, Activated Partial Thromboplast Time 30, Sodium Level 144, Potassium Level 3.5L, Chloride Level 104, Carbon Dioxide Level 24, Anion Gap 16H, Blood Urea Nitrogen 12, Creatinine 0.91, Estimat Glomerular Filtration Rate 113, BUN/Creatinine Ratio 13, Glucose Level 112H, Calcium Level 9.2, Corrected Calcium , Magnesium Level 2.1, Total Bilirubin 0.4, Aspartate Amino Transf (AST/SGOT) 27, Alanine Aminotransferase (ALT/SGPT) 45, Alkaline Phosphatase 80, Myoglobin 77.9, Troponin I < 0.028, B-Type Natriuretic Peptide 37.6, Total Protein 7.7, Albumin 4.6H, TSH [place] Testing 1.99 9/16/22 04:56: White Blood Count 11.9H, Red Blood Count 5.39, Hemoglobin 15.5, Hematocrit 46, Mean Corpuscular Volume 85, Mean Corpuscular Hemoglobin 29, Mean Corpuscular Hem oglobin Concent 34, Red Cell Distribution Width 13.9, Platelet Count 318, Mean Platelet Volume 10.2, Immature Granulocyte % (Auto) 0, Neutrophils (%) (Auto) 60, Lymphocytes (%) (Auto) 29, Monocytes (%) (Auto) 8, Eosinophils (%) (Auto) 2, Basophils (%) (Auto) 1, Neutrophils # (Auto) 7.1, Lymphocytes # (Auto) 3.5, Monocytes # (Auto) 0.9, Eosinophils # (Auto) 0.2, Basophils # (Auto) 0.1, Immature Granulocyte # (Auto) 0.0, Sodium Level 142, Potassium Level 3.6, Chloride Level 107, Carbon Dioxide Level 23, Anion Gap 12, Blood Urea Nitrogen 9, Creatinine 0.79, Estimat Glomerular Filtration Rate 119, BUN/Creatinine Ratio 11, Glucose Level 87, Calcium Level 9.2, Corrected Calcium 8.9, Magnesium Level 2.2, Total Bilirubin 0.5, Aspartate Amino Transf (AST/SGOT) 28, Alanine Aminotransferase (ALT/SGPT) 49, Alkaline Phosphatase 72, Total Protein 7.6, Albumin 4.4, Phosphorus Level 3.4, Triglycerides Level 92, Cholesterol Level 206H, LDL Cholesterol Direct 162H, VLDL Cholesterol 18, HDL Cholesterol 42 A/P-Cardiology Assessment/Admission Diagnosis Uncontrolled HTN ADHD Bi-polar Non-compliance with medications Discussion and Recomendations Uncontrolled HTN - start BB - adjust antihypertensive regimen as indicated Echocardiogram today Monitor lab closely - replace electrolytes as indicated Further recs will be based on his hospital course We would like to thank Medical services for this consult Clinical Quality Measures AMI/AHF: ASA po Prior to arrival: Yes ([phone]) MARA MO MD FACP FAC CCDS May 12, 2022 12:02
[2022-05-12] MEDS ORDERED: NICOTINE 14 MG (NICODERM) PATCH TD NR (17:00)
--- NOTE | 2022-05-12 18:24 | History & Physical-Hospitalist ---
History of Present Illness HPI/Chief Complaint Javi Cerrato is a 36 year old male with PMH HTN, tobacco abuse, obesity, who presented from [facility] walk in clinic with hypertension. He has a history of high blood pressure but does not take medication. He does not have insurance or a primary care physician. He has an appointment to establish at [facility] in June. He reports having headaches most days. He denies vision changes. He reports occasional left arm pain. He denies fevers and chills. He was having some shortness of breath yesterday. He denies cough. He denies abdominal pain, nausea, vomiting, and diarrhea. Source: patient Exam Limitations: no limitations Date Seen 05/12/22 Time Seen by a Provider: 09:50 Attending Physician [place] PCP Admitting Physician: Louise Anand DO Attending Physician: Louise Anand DO Referring Physician Date of Admission May 11, 2022 at 20:57 Home Medications & Allergies Home Medications Reviewed patient Home Medication Reconciliation performed by pharmacy medication reconciliations hvac refrigeration technician and/or nursing. Patients Allergies have been reviewed. Allergies Allergies Coded Allergies No Known Drug Allergies (Nnfzitcjwp90/24/10) Past Bbahoup-Fsftoy-Dajuxa Hx Patient Social History Tobacco Use?: Yes Tobacco type used: Cigarettes Smoking Status: Current Everyday Smoker Use of E-Cig and/or Vaping dev: No Substance use?: No Alcohol Use?: No Pt feels they are or have been: No Immunizations Up To Date Tetanus Booster (TDap): More Than 5 Years Seasonal Allergies Seasonal Allergies: Yes Current Status Advance Directives: No Communicates: Verbally Primary Language: [place] Preferred Spoken Language: [place] Is interpretation needed?: No Sensory deficits: Vision impairment Implanted or Applied Medical D: None Past Medical History Surgeries: Adenoidectomy, Tonsillectomy Hypertension Hearing Impairment: Denies Blood Disorders: No Adverse Reaction/Blood Tranf: No Family Medical History No Pertinent Family Hx Review of Systems Constitutional: no symptoms reported EENTM: no symptoms reported Respiratory: short of breath Cardiovascular: no symptoms reported Gastrointestinal: no symptoms reported Physical Exam Physical Exam Vital Signs Vital Signs - First Documented 05/11/22 05/11/22 05/11/22 18:53 21:35 22:15 Temp 37.0 Pulse 95 Resp 20 B/P (MAP) 247/146 (179) Pulse Ox 95 O2 Delivery Room Air FiO2 21 Capillary Refill : Height, Weight, BMI Height: '" Weight: lbs. oz. kg; 33.86 BMI Method: General Appearance: No Apparent Distress, Obese HEENT: PERRL/EOMI, Pharynx Normal Neck: Normal Inspection, Supple Respiratory: Lungs Clear, Normal Breath Sounds, No Respiratory Distress Cardiovascular: Regular Rate, Rhythm, No Edema, No Murmur Gastrointestinal: Normal Bowel Sounds, Non Tender, Soft Extremity: Normal Inspection, No Pedal Edema Neurologic/Psychiatric: Alert, Normal Mood/Affect Skin: Normal Color, Warm/Dry Results Results/Procedures Labs Laboratory Tests 05/11/22 18:56 05/12/22 04:56 Patient resulted labs reviewed. Imaging: Reviewed Imaging Report Assessment/Plan Admission Diagnosis Hypertensive urgency Admission Status: Inpatient Order (span 2 midnights) Reason for Inpatient Admission: Severe hypertension Assessment and Plan HTN urgency HFpEF Started on IV Cardene Cardiology consulted TeleICU consulted Troponin normal EKG with LVH Echo with EF 45-50%, grade II diastolic dysfunction Amlodipine Metoprolol Hydralazine as needed Tobacco abuse Nicotine patch/gum Recommend cessation Obesity Clinically significant, no acute management needs DVT prophylaxis: ambulation Critical Care Critically Ill Patient Diagnosis/Problems Diagnosis/Problems (1) Hypertensive urgency Status: Acute (2) (HFpEF) heart failure with preserved ejection fraction Status: Acute Qualifiers: Heart failure chronicity: acute Qualified Codes: I50.31 - Acute diastolic (congestive) heart failure (3) LVH (left ventricular hypertrophy) due to hypertensive disease Status: Acute (4) Tobacco abuse Status: Chronic (5) Obesity Status: Chronic Clinical Quality Measures AMI/AHF: ASA po Prior to arrival: Yes (324) YARA CEBALLOS MD May 12, 2022 18:24
[2022-05-12] MEDS ORDERED: hydrALAZINE (APESOLINE) 20 MG/ML VIAL IV PRN (18:30)
[2022-05-12] MEDS ORDERED: NICOTINE 2 MG GUM (NICORETTE) PO PRN (18:30)
[2022-05-12] MEDS: ENOXAPARIN 40 MG/0.4 ML (LOVENOX) SYR SC SCH (20:57)
[2022-05-13] MEDS: niCARdipine IV (Pyxis drip kit 50 MG in NS (IVPB) 230 ML IV SCH ×2 (04:08)
[2022-05-13 05:37] LABS: BASOPHILS # (AUTO) 0.1 10^3/uL (0.0-0.1); BASOPHILS % (AUTO) 1 % (0-10); EOSINOPHILS # (AUTO) 0.2 10^3/uL (0.0-0.3); EOSINOPHILS % (AUTO) 2 % (0-10); HEMATOCRIT 47 % (40-54); HEMOGLOBIN 15.8 g/dL (13.3-17.7); LYMPHOCYTES # (AUTO) 2.8 10^3/uL (1.0-4.0); LYMPHOCYTES % (AUTO) 31 % (12-44); MEAN CORPUSCULAR HEMOGLOBIN 29 pg (25-34); MEAN CORPUSCULAR HGB CONC 34 g/dL (32-36); MEAN CORPUSCULAR VOLUME 85 fL (80-99); MEAN PLATELET VOLUME 10.4 fL (9.0-12.2); MONOCYTES # (AUTO) 0.7 10^3/uL (0.0-1.0); MONOCYTES % (AUTO) 8 % (0-12); NEUTROPHILS # (AUTO) 5.1 10^3/uL (1.8-7.8); NEUTROPHILS % (AUTO) 58 % (42-75); PLATELET COUNT 337 10^3/uL (130-400)
[2022-05-13 05:56] LABS: ALBUMIN 4.3 GM/DL (3.2-4.5); BILIRUBIN,TOTAL 0.8 MG/DL (0.1-1.0); CALCIUM 9.2 MG/DL (8.5-10.1); CREATININE SERUM 0.8 MG/DL (0.60-1.30); MAGNESIUM 2.2 MG/DL (1.6-2.4); PHOSPHORUS 2.8 MG/DL (2.3-4.7); POTASSIUM 3.7 MMOL/L (3.6-5.0); TOTAL PROTEIN 7.3 GM/DL (6.4-8.2)
[2022-05-13] MEDS: KCL 20 MEQ TAB (K-DUR) PO SCH (06:34)
[2022-05-13] MEDS: POTASSIUM CL 10MEQ/50ML IVPB 50 ML IV SCH (06:34)
[2022-05-13] MEDS: MAGNESIUM 1 GM/100 ML IVPB 100 ML IV SCH (06:34)
[2022-05-13] MEDS: meTOprolol SUCCINATE 100 MG (TOPROL XL) TAB PO SCH (07:08)
[2022-05-13] MEDS: SENNOSIDES 8.6 MG (SENOKOT) TAB PO SCH (07:56)
[2022-05-13] MEDS: DOCUSATE SODIUM 100 MG (COLACE) CAP PO SCH (07:56)
[2022-05-13] MEDS ORDERED: amLODIPine 10 MG (NORVASC) TAB PO SCH (09:00)
[2022-05-13] MEDS ORDERED: lisINopril 40 MG (PRINIVIL) TABLET PO NR (09:30)
--- NOTE | 2022-05-13 09:34 | Tele-ICU Progress Note ---
Subjective Date Seen by a Provider: May 13, 2022 Subjective/Events-last exam This virtual visit was conducted using real time audio/video. Thank you for asking us to see this patient for malignant htn. Recent events: BP 187/111 earlier, off Cardene. Now 160s. PE: Appears comfortable on camera. O2 sat 95% on RA HEENT: No obvious masses, adenopathy or JVD. Chest: clear to auscultation. CV: RRR S1 S2 No murmur or added sounds. Abd: Non-tender. Bowel sounds Y. : Unremarkable. Knight N. [employer]/psychiatric: Grossly intact. No obvious focal findings. Extremities: No edema. Capillary refill < 3 seconds. Skin: unremarkable. Results: CXR: Clear. Available chart/ vitals / labs / images reviewed. Video assessment done using teleICU camera, rest of exam as per RN. A/P: Critical Care: critically ill patient. Cont. Norvasc, Metoprolol, nicotine patch, Yair. May need a 3rd antihypertensive. Could transfer later today if hospitalist agrees. Discussed with GABY Bueno. Asked RN to reach out to eICU if any questions or concerns later. Time spent with patient/coordination of care with other health professionals (mins): 15 Sepsis Event Evaluation Height, Weight, BMI Height: '" Weight: lbs. oz. kg; 33.14 BMI Method: Exam Exam Patient acknowledged, consented, and participated in this virtual visit which was conducted using real time audio/video Vital Signs Date Time Temp Pulse Resp B/P (MAP) Pulse Ox O2 Delivery O2 Flow Rate FiO2 05/13/22 09:00 67 15 101/48 (65) 97 Room Air 05/13/22 08:00 72 34 172/111 (131) 97 Room Air 05/13/22 08:00 93 Room Air 05/13/22 07:35 36.8 05/13/22 07:00 63 21 183/116 (138) 95 Room Air 05/13/22 07:00 77 05/13/22 06:00 63 29 166/112 (130) 97 Room Air 05/13/22 05:00 57 13 157/98 (117) 96 Room Air 05/13/22 04:07 93 Room Air 05/13/22 04:00 36.6 05/13/22 04:00 64 20 164/101 (122) 94 Room Air 05/13/22 03:00 71 19 160/95 (116) 95 Room Air 05/13/22 02:00 63 19 140/97 (111) 92 Room Air 05/13/22 01:00 57 14 141/91 (108) 92 Room Air 05/13/22 01:00 60 05/13/22 00:00 51 25 146/100 (115) 97 Room Air 05/13/22 00:00 92 Room Air 05/13/22 00:00 36.7 05/12/22 23:00 56 28 146/94 (111) 97 Room Air 05/12/22 22:47 93 Room Air 05/12/22 22:00 65 21 147/89 (108) 96 Room Air 05/12/22 21:00 58 15 137/89 (105) 95 Room Air 05/12/22 20:27 36.5 05/12/22 20:00 65 20 149/87 (107) 97 Room Air 05/12/22 19:48 94 Room Air 05/12/22 19:00 61 153/97 (115) 96 Room Air 05/12/22 19:00 64 05/12/22 18:00 71 16 156/102 (120) 96 Room Air 05/12/22 17:00 63 30 166/106 (126) 95 Room Air 05/12/22 16:05 36.8 05/12/22 16:00 96 Room Air 05/12/22 16:00 68 21 184/109 (134) 97 Room Air 05/12/22 15:00 55 21 122/73 (89) 95 Room Air 05/12/22 14:00 65 10 156/97 (116) 96 Room Air 05/12/22 13:47 92 Room Air 05/12/22 13:00 69 19 173/103 (126) 96 Room Air 05/12/22 13:00 74 05/12/22 12:15 96 Room Air 05/12/22 12:00 70 23 149/88 (108) 92 Room Air 05/12/22 11:00 65 20 171/110 (130) 96 Room Air 05/12/22 10:00 70 20 170/112 (131) 96 Room Air I & O 05/13/22 07:00 Intake Total 1860 ml Output Total 2225 ml Balance -365 ml Height & Weight Height: '" Weight: lbs. oz. kg; 33.14 BMI Method: General Appearance: No Apparent Distress, Obese HEENT: PERRL/EOMI, Pharynx Normal Neck: Normal Inspection, Supple Respiratory: Lungs Clear, Normal Breath Sounds, No Respiratory Distress Cardiovascular: Regular Rate, Rhythm, No Edema, No Murmur Extremity: Normal Inspection, No Pedal Edema Neurologic/Psychiatric: Alert, Normal Mood/Affect Skin: Normal Color, Warm/Dry Results Lab Laboratory Tests 05/11/22 18:56 05/12/22 04:56 05/13/22 05:17 Assessment/Plan Assessment/Plan See free text. Critical Care: Critically Ill Patient HEBER BOLTON MD May 13, 2022 09:34
[2022-05-13] MEDS ORDERED: MTP100TCR PO (09:52)
[2022-05-13] MEDS ORDERED: AMLO-251 PO (09:52)
[2022-05-13] MEDS ORDERED: LISI40TA9 PO (09:52)
[2022-05-13] MEDS ORDERED: NICOTINE PATCH REMOVAL TP SCH (17:00)
--- NOTE | 2022-05-13 20:01 | Discharge Summary ---
Discharge Summary Hospital Course Was the Problem List Reviewed?: Yes Problems/Dx: (1) Hypertensive urgency Status: Acute (2) (HFpEF) heart failure with preserved ejection fraction Status: Acute Qualifiers: Qualified Codes: I50.31 - Acute diastolic (congestive) heart failure (3) LVH (left ventricular hypertrophy) due to hypertensive disease Status: Acute (4) Tobacco abuse Status: Chronic (5) Obesity Status: Chronic Hospital Course Date of Admission: May 11, 2022 at 20:57 Admission Diagnosis : HTN urgency Family Physician/Provider: [facility] Date of Discharge: 05/13/22 Discharge Diagnosis: HTN urgency Hospital Course: Javi Cerrato is a 36 year old male who was admitted with HTN urgency. He has a history of hypertension but has been unable to afford his medications. He was treated with IV Cardene and his BP improved. He was then started on oral medications and transitioned off the drip. He was started on Toprol, Norvasc, and Lisinopril. His BP improved but remained significantly elevated. He was encouraged to stay to continue improving his BP, but he chose to leave [facility]. His course was complicated by newly diagnosed LVH and diastolic heart failure related to his hypertension. His new BP meds were sent to [facility] at his request. He has an appointment to establish care at [facility] in June. Labs and Pending Lab Test: Laboratory Tests 05/13/22 05:17: White Blood Count 9.0, Red Blood Count 5.51, Hemoglobin 15.8, Hematocrit 47, Mean Corpuscular Volume 85, Mean Corpuscular Hemoglobin 29, Mean Corpuscular H emoglobin Concent 34, Red Cell Distribution Width 13.8, Platelet Count 337, Mean Platelet Volume 10.4, Immature Granulocyte % (Auto) 0, Neutrophils (%) (Auto) 58, Lymphocytes (%) (Auto) 31, Monocytes (%) (Auto) 8, Eosinophils (%) (Auto) 2, Basophils (%) (Auto) 1, Neutrophils # (Auto) 5.1, Lymphocytes # (Auto) 2.8, Monocytes # (Auto) 0.7, Eosinophils # (Auto) 0.2, Basophils # (Auto) 0.1, Immature Granulocyte # (Auto) 0.0, Sodium Level 141, Potassium Level 3.7, Chloride Level 108H, Carbon Dioxide Level 21, Anion Gap 12, Blood Urea Nitrogen 13, Creatinine 0.80, Estimat Glomerular Filtration Rate 118, BUN/Creatinine Ratio 16, Glucose Level 85, Calcium Level 9.2, Corrected Calcium 9.0, Phosphorus Level 2.8, Magnesium Level 2.2, Total Bilirubin 0.8, Aspartate Amino Transf (AST/SGOT) 35H, Alanine Aminotransferase (ALT/SGPT) 65H, Alkaline Phosphatase 74, Total Protein 7.3, Albumin 4.3 Home Meds Active Lisinopril 40 Mg Tablet 40 Mg PO DAILY 90 Days Amlodipine Besylate 10 Mg Tablet 10 Mg PO DAILY 90 Days Metoprolol Succinate 100 Mg Tab.er.24h 200 Mg PO DAILY 90 Days Reported Tums (Calcium Carbonate) 300 Mg Calcium (750 Mg) Tab.chew 300-600 Mg PO Q6H PRN Ibuprofen 200 Mg Tablet 800 Mg PO Q8H PRN Assessment/Pt Instructions Discharged against medical advice Discharge Planning: <30 minutes discharge planning Discharge Instructions Discharge Diet: Low Sodium Diet Activity as Tolerated: Yes Consultations Cardiology Discharge Physical Examination Vital Signs Vital Signs Date Time Temp Pulse Resp B/P (MAP) Pulse Ox O2 Delivery O2 Flow Rate FiO2 05/13/22 09:00 67 15 101/48 (65) 97 Room Air 05/13/22 07:35 36.8 05/11/22 22:15 21 General Appearance: No Apparent Distress, Obese Respiratory: Lungs Clear, No Respiratory Distress Cardiovascular: Regular Rate, Rhythm, No Murmur Gastrointestinal: Normal Bowel Sounds, Soft Extremity: Normal Inspection, No Pedal Edema Neurologic/Psychiatric: Alert, Normal Mood/Affect Allergies: Coded Allergies: No Known Drug Allergies (Unverified , 06/19/10) Copy Copies To 1: [facility] [place] Discharge Summary Date of Admission May 11, 2022 at 20:57 Date of Discharge May 13, 2022 at 10:10 Discharge Date: May 13, 2022 Discharge Time: 10:10 Admission Diagnosis Hypertensive urgency Consults/Procedures Consulations Cardiology Discharge Diagnosis HTN urgency HFpEF LVH Tobacco abuse Obesity (1) Hypertensive urgency Status: Acute (2) (HFpEF) heart failure with preserved ejection fraction Status: Acute Qualifiers: Qualified Codes: I50.31 - Acute diastolic (congestive) heart failure (3) LVH (left ventricular hypertrophy) due to hypertensive disease Status: Acute (4) Tobacco abuse Status: Chronic (5) Obesity Status: Chronic Clinical Quality Measures AMI/AHF: ASA po Prior to arrival: Yes ([phone]) YARA CEBALLOS MD May 13, 2022 20:00
[2022-05-14] MEDS ORDERED: lisINopril 40 MG (PRINIVIL) TABLET PO SCH (09:00)
== END 2022-05-13 10:10 | disposition home or self-care (01) | DRG 304 ==
LOC: EDUNIT# 18:42 → ER 18:43 → ICU 20:57
PROVIDERS: ADMIT Internal Medicine; ATTEND Internal Medicine
DX: I16.0 Hypertensive urgency (principal); I50.31 Acute diastolic (congestive) heart failure; F17.210 Nicotine dependence, cigarettes, uncomplicated; I11.0 Hypertensive heart disease with heart failure; E66.9 Obesity, unspecified; F31.9 Bipolar disorder, unspecified; F41.9 Anxiety disorder, unspecified; Z91.14 Patient's other noncompliance with medication regimen; F90.9 Attention-deficit hyperactivity disorder, unspecified type
CPT/HCPCS: 36415; 71045; 80053; 80061; 83735; 83874; 83880; 84100; 84443; 84484; 85025; 85610; 85730; 87081; 93005; 93041; 93306; 94760